=== PATIENT | female | born 1980 | race Caucasian/White ===

== ENCOUNTER 2019-07-07 13:03 | Emergency (ER) | payer MEDICAID ==
[~2019-07-07] VITALS: Ht 167.6 cm; Wt 97.7 kg
[2019-07-07 13:09] VITALS: BP 119/74
[2019-07-07] MEDS ORDERED: PENI500T2 PO ×2 (14:13→14:15)
[2019-07-07] MEDS ORDERED: ACET-3068 PO ×2 (14:13→14:15)
== END 2019-07-07 14:44 | disposition home or self-care (01) ==
LOC: ER 13:04
DX: K04.7 Periapical abscess without sinus (principal); F17.200 Nicotine dependence, unspecified, uncomplicated; F12.90 Cannabis use, unspecified, uncomplicated; Z79.2 Long term (current) use of antibiotics; Z79.899 Other long term (current) drug therapy
CPT/HCPCS: 99283

== ENCOUNTER 2024-09-04 12:44 | Emergency (ER) | payer MEDICAID ==
[~2024-09-04] VITALS: Ht 167.6 cm; Wt 120.4 kg
[2024-09-04 12:48] VITALS: BP 168/92; PULSE 64; RESP 16; O2SAT 96
[2024-09-04] MEDS ORDERED: DOXY-460 PO (15:28)
[2024-09-04] MEDS ORDERED: DOXYCYCLINE 100MG CAPSULE PO STA (15:35)
[2024-09-04 16:04] VITALS: TEMP 99.5
== END 2024-09-04 16:05 | disposition home or self-care (01) ==
LOC: ER 12:44
DX: S80.261A Insect bite (nonvenomous), right knee, initial encounter (principal); L03.115 Cellulitis of right lower limb; F12.90 Cannabis use, unspecified, uncomplicated; Z79.2 Long term (current) use of antibiotics; W57.XXXA Bitten or stung by nonvenomous insect and other nonvenomous arthropods, initial encounter; Y93.89 Activity, other specified; Y92.89 Other specified places as the place of occurrence of the external cause; Y99.8 Other external cause status
CPT/HCPCS: 99283